=== PATIENT | female | born 1955 | race Two or more races ===

== ENCOUNTER 2021-02-02 12:14 | Outpatient (CLI) | payer OTHER | END 2021-02-02 12:20 | disposition home or self-care (01) | LOC: RAD 12:14 | PROVIDERS: ATTEND Internal Medicine | DX: E03.8 Other specified hypothyroidism (principal); E66.8 Other obesity; E28.310 Symptomatic premature menopause; Z13.29 Encounter for screening for other suspected endocrine disorder; E55.9 Vitamin D deficiency, unspecified; Z72.51 High risk heterosexual behavior ==

== ENCOUNTER 2021-10-07 10:04 | Outpatient (CLI) | payer OTHER | END 2021-10-07 10:23 | disposition home or self-care (01) | LOC: SONOGRAMA 10:04 | DX: N39.0 Urinary tract infection, site not specified (principal) ==